=== PATIENT | male | born 1990 | race Two or more races ===

== ENCOUNTER 2019-08-05 11:03 | Emergency (ER) | payer OTHER ==
[~2019-08-05] VITALS: Ht 172.7 cm; Wt 68.0 kg
[2019-08-05 11:21] VITALS: BP 146/87
[2019-08-05] MEDS: LIDOCAINE 1% HCL (LOCAL ANESTH.) INJ 20ML MDV ONE (13:41)
[2019-08-05] MEDS: LIDOCAINE 1% HCL (LOCAL ANESTH.) INJ 20ML MDV IJ ONE (14:44)
[2019-08-05] MEDS: TETANUS-DIPTH-ACEL PERTUSSIS 0.5ML SYRG IM ONE (14:50)
[2019-08-05] MEDS: BACITRACIN TOP OINT 1 UD PKG TOP ONE (14:58)
== END 2019-08-05 15:11 | disposition home or self-care (01) ==
LOC: ER 11:03 → EEVIPCON 11:03 → ER 15:11
DX: S61.210A Laceration without foreign body of right index finger without damage to nail, initial encounter (principal); F17.210 Nicotine dependence, cigarettes, uncomplicated; X99.8XXA Assault by other sharp object, initial encounter; Y93.89 Activity, other specified; Y92.89 Other specified places as the place of occurrence of the external cause; Y99.8 Other external cause status
CPT/HCPCS: 12001; 73120; 90471; 90715; 99283; J2001